=== PATIENT | male | born 1965 | race Caucasian/White ===

== ENCOUNTER 2016-06-08 15:21 | Outpatient (CLI) | payer OTHER ==
[2015-07-16 10:16] VITALS: BP 158/81
[2016-06-08 15:40] LABS: BASOPHILS % 0.3 (0.0-1.5); EOSINOPHILS % 1.1 % (0.0-6.8); LYMPHOCYTES # 1.5 # k/uL (0.6-4.0); MONOCYTES # 0.5 # k/uL (0.0-0.9); MONOCYTES % 4.2 % (0.0-11.0); NEUTROPHILS # 9.3 # k/uL (1.4-7.7)
[2016-06-08 16:23] LABS: eGFR (African) > 60; eGFR (Non-African) > 60
== END 2016-06-08 15:22 ==
LOC: LAB 15:21
PROVIDERS: ATTEND Physician Assistant
DX: R10.9 Unspecified abdominal pain (principal)
CPT/HCPCS: 36415; 80053; 85025; 87086

== ENCOUNTER 2018-11-29 08:10 | Outpatient (CLI) | payer OTHER ==
[2015-07-16 10:16] VITALS: BP 158/81
== END 2018-11-29 08:13 ==
LOC: LAB 08:10
PROVIDERS: ATTEND Pediatrics
DX: Z51.81 Encounter for therapeutic drug level monitoring (principal); Z79.01 Long term (current) use of anticoagulants
CPT/HCPCS: 36415; 85610

== ENCOUNTER 2018-12-03 08:26 | Outpatient (CLI) | payer OTHER ==
[2015-07-16 10:16] VITALS: BP 158/81
== END 2018-12-03 08:28 ==
LOC: LAB 08:26
PROVIDERS: ATTEND Family Medicine
DX: I82.409 Acute embolism and thrombosis of unspecified deep veins of unspecified lower extremity (principal)
CPT/HCPCS: 36415; 85610

== ENCOUNTER 2018-12-05 08:51 | Outpatient (CLI) | payer OTHER ==
[2015-07-16 10:16] VITALS: BP 158/81
== END 2018-12-05 08:53 ==
LOC: LAB 08:51
PROVIDERS: ATTEND Family Medicine
DX: I82.409 Acute embolism and thrombosis of unspecified deep veins of unspecified lower extremity (principal)
CPT/HCPCS: 36415; 85610

== ENCOUNTER 2018-12-06 08:21 | Outpatient (CLI) | payer OTHER ==
[2015-07-16 10:16] VITALS: BP 158/81
== END 2018-12-06 08:35 ==
LOC: LAB 08:21
PROVIDERS: ATTEND Family Medicine
DX: I82.409 Acute embolism and thrombosis of unspecified deep veins of unspecified lower extremity (principal)
CPT/HCPCS: 36415; 85610

== ENCOUNTER 2018-12-10 08:28 | Outpatient (CLI) | payer OTHER ==
[2015-07-16 10:16] VITALS: BP 158/81
== END 2018-12-10 08:30 ==
LOC: LAB 08:28
PROVIDERS: ATTEND Family Medicine
DX: I82.409 Acute embolism and thrombosis of unspecified deep veins of unspecified lower extremity (principal)
CPT/HCPCS: 36415; 85610

== ENCOUNTER 2018-12-18 08:04 | Outpatient (CLI) | payer OTHER ==
[2015-07-16 10:16] VITALS: BP 158/81
== END 2018-12-18 08:06 ==
LOC: LAB 08:04
PROVIDERS: ATTEND Family Medicine
DX: I82.409 Acute embolism and thrombosis of unspecified deep veins of unspecified lower extremity (principal); I26.99 Other pulmonary embolism without acute cor pulmonale; Z51.81 Encounter for therapeutic drug level monitoring; Z79.01 Long term (current) use of anticoagulants
CPT/HCPCS: 36415; 85610

== ENCOUNTER 2019-01-01 08:10 | Outpatient (CLI) | payer OTHER ==
[2015-07-16 10:16] VITALS: BP 158/81
== END 2019-01-01 08:13 ==
LOC: LAB 08:10
PROVIDERS: ATTEND Family Medicine
DX: Z51.81 Encounter for therapeutic drug level monitoring (principal); Z79.899 Other long term (current) drug therapy
CPT/HCPCS: 36415; 85610

== ENCOUNTER 2019-01-29 08:05 | Outpatient (CLI) | payer OTHER ==
[2015-07-16 10:16] VITALS: BP 158/81
[2019-01-29 08:44] LABS: eGFR (Non-African) > 60
[2019-01-29 08:49] LABS: A1C 5.7 % (<5.7)
== END 2019-01-29 18:10 | disposition home or self-care (01) ==
LOC: LAB 08:05
PROVIDERS: ATTEND Family Medicine
DX: E11.9 Type 2 diabetes mellitus without complications (principal); I26.99 Other pulmonary embolism without acute cor pulmonale; I82.409 Acute embolism and thrombosis of unspecified deep veins of unspecified lower extremity; Z79.01 Long term (current) use of anticoagulants; Z51.81 Encounter for therapeutic drug level monitoring
CPT/HCPCS: 36415; 80053; 83036; 85610

== ENCOUNTER 2019-02-04 08:15 | Outpatient (CLI) | payer OTHER ==
[2015-07-16 10:16] VITALS: BP 158/81
== END 2019-02-04 08:20 ==
LOC: LAB 08:15
PROVIDERS: ATTEND Family Medicine
DX: I26.99 Other pulmonary embolism without acute cor pulmonale (principal); I82.409 Acute embolism and thrombosis of unspecified deep veins of unspecified lower extremity; Z51.81 Encounter for therapeutic drug level monitoring; Z79.01 Long term (current) use of anticoagulants
CPT/HCPCS: 36415; 85610

== ENCOUNTER 2019-02-07 08:02 | Outpatient (CLI) | payer OTHER ==
[2015-07-16 10:16] VITALS: BP 158/81
== END 2019-02-07 08:07 ==
LOC: LAB 08:02
PROVIDERS: ATTEND Family Medicine
DX: I82.409 Acute embolism and thrombosis of unspecified deep veins of unspecified lower extremity (principal); I26.99 Other pulmonary embolism without acute cor pulmonale; Z79.899 Other long term (current) drug therapy
CPT/HCPCS: 36415; 85610

== ENCOUNTER 2019-02-14 08:04 | Outpatient (CLI) | payer OTHER ==
[2015-07-16 10:16] VITALS: BP 158/81
== END 2019-02-14 08:09 ==
LOC: LAB 08:04
PROVIDERS: ATTEND Family Medicine
DX: Z51.81 Encounter for therapeutic drug level monitoring (principal); Z79.01 Long term (current) use of anticoagulants; I82.409 Acute embolism and thrombosis of unspecified deep veins of unspecified lower extremity; I26.99 Other pulmonary embolism without acute cor pulmonale
CPT/HCPCS: 36415; 85610

== ENCOUNTER 2019-02-27 08:16 | Outpatient (CLI) | payer OTHER ==
[2015-07-16 10:16] VITALS: BP 158/81
== END 2019-02-27 08:21 ==
LOC: LAB 08:16
PROVIDERS: ATTEND Family Medicine
DX: Z51.81 Encounter for therapeutic drug level monitoring (principal); I26.99 Other pulmonary embolism without acute cor pulmonale; I82.409 Acute embolism and thrombosis of unspecified deep veins of unspecified lower extremity
CPT/HCPCS: 36415; 85610

== ENCOUNTER 2019-03-27 08:04 | Outpatient (CLI) | payer OTHER ==
[2015-07-16 10:16] VITALS: BP 158/81
== END 2019-03-27 08:09 ==
LOC: LAB 08:04
PROVIDERS: ATTEND Family Medicine
DX: Z51.81 Encounter for therapeutic drug level monitoring (principal); I26.99 Other pulmonary embolism without acute cor pulmonale; I82.409 Acute embolism and thrombosis of unspecified deep veins of unspecified lower extremity
CPT/HCPCS: 36415; 85610